=== PATIENT | male | born 1950 ===

== ENCOUNTER 2024-09-28 18:47 | Outpatient (REF) | payer SELFPAY ==
[2024-09-28 19:33] LABS: Abs Immature Grans 0.03 10^3/uL (0.0-0.06); Absolute Basophil Count 0.02 10^3/uL (0.0-0.2); Absolute Eosinophil Count 0.08 10^3/uL (0.0-0.7); Absolute Lymphocyte Count 2.01 10^3/uL (1.2-3.4); Absolute Monocyte Count 0.79 10^3/uL (0.1-0.8); Absolute Neutrophil Count 6.34 10^3/uL (1.2-6.7); Basophils % 0.2 %; Eosinophils % 0.9 %; HCT 44.2 % (40.0-50.0); HGB 14.6 g/dL (13.5-17.5); Immature Grans % 0.3 %; Lymphocytes % 21.7 %; MCH 30.1 pg (27.0-33.0); MCV 91 fL (80-95); MPV 11.5 fL (8.0-11.0); Monocytes % 8.5 %; Neutrophils % 68.4 %; Platelet Count 178 10^3/uL (130-400); RBC 4.85 10^6/uL (4.36-5.78); RDW 12.8 % (11.8-14.1); RDW-SD 42.7 fL; WBC 9.27 10^3/uL (4.4-10.8)
[2024-09-28 19:59] LABS: Iron 93 ug/dL (65-175); Total Iron Binding Capacity 225 ug/dL (250-450); Transferrin Sat 41 % (20-55)
[2024-09-28 20:31] LABS: Hemoglobin A1C 6.3 % (<5.7)
[2024-09-28 20:32] LABS: ALT 29 U/L (16-63); AST 21 U/L (15-37); Albumin 3.2 g/dL (3.4-5.0); Alkaline Phosphatase 90 U/L (46-116); Anion Gap 10.3 mmol/L (3-11); BUN 15 mg/dL (7-18); CO2 28.7 mmol/L (21.0-32.0); CREATININE 0.8 mg/dL (0.70-1.30); Calcium 9.1 mg/dL (8.5-10.1); Chloride 104 mmol/L (98-107); Estimated GFR 94.03 (mL/min/1.73m2); Ferritin 202 ng/mL (26-388); Folate 6.6 ng/mL (8.6-20.0); Glucose 142 mg/dL (74-106); Magnesium 2.2 mg/dL (1.8-2.4); Potassium 4.4 mmol/L (3.5-5.1); Sodium 143 mmol/L (136-145); TSH (W/Ref FT4) 1.19 uIU/mL (0.36-3.74); Total Protein 6.8 g/dL (6.4-8.2); Vitamin B12 589 pg/mL (193-986); Vitamin D 25 Total 18.9 ng/mL (30-100)
[2024-09-28 21:08] LABS: NT-proBNP 54 pg/mL (<300)
== END 2024-09-28 18:48 | disposition home or self-care (01) ==
LOC: LBN 18:47
PROVIDERS: PCP Legal Medicine; Visit Provider Nurse Practitioner Gerontology
DX: D51.9 Vitamin B12 deficiency anemia, unspecified; E83.42 Hypomagnesemia; R73.09 Other abnormal glucose; I11.9 Hypertensive heart disease without heart failure
CPT/HCPCS: 80053; 82306; 82607; 82728; 82746; 83036; 83540; 83550; 83735; 83880; 84443; 85025

== ENCOUNTER 2024-10-07 19:56 | Outpatient (REF) | payer SELFPAY ==
[2024-10-08 20:01] LABS: HBs Antibody, Quant 36.3 mIU/mL (See Note); Hepatitis B Surface Ab Positive (See Note)
[2024-10-08 20:10] LABS: Hepatitis B Surface Ag Negative (Negative)
[2024-10-08 20:42] LABS: Hep B Core Antibody Negative (Negative)
[2024-10-08 20:59] LABS: Hepatitis C Ab w Rflx HCV PCR Negative (Negative)
[2024-10-10 11:27] LABS: HBc IgM Ab, S Negative (Negative)
== END 2024-10-07 19:57 | disposition home or self-care (01) ==
LOC: LBN 19:56
PROVIDERS: PCP Legal Medicine; Visit Provider Nurse Practitioner Gerontology
DX: B19.10 Unspecified viral hepatitis B without hepatic coma (principal)
CPT/HCPCS: 86704; 86706; 86803; 87340; 86705